=== PATIENT | male | born 1965 | race Two or more races ===

== ENCOUNTER 2021-06-27 06:34 | Outpatient (CLI) | payer OTHER | END 2021-06-27 06:36 | disposition home or self-care (01) | LOC: LAB 06:34 | PROVIDERS: ATTEND Internal Medicine | DX: D56.8 Other thalassemias (principal); D64.3 Other sideroblastic anemias; R94.5 Abnormal results of liver function studies; E78.2 Mixed hyperlipidemia; I10 Essential (primary) hypertension; N40.0 Benign prostatic hyperplasia without lower urinary tract symptoms; R73.01 Impaired fasting glucose; Z13.1 Encounter for screening for diabetes mellitus; Z12.11 Encounter for screening for malignant neoplasm of colon; E55.9 Vitamin D deficiency, unspecified; E79.0 Hyperuricemia without signs of inflammatory arthritis and tophaceous disease ==

== ENCOUNTER 2021-08-13 06:53 | Outpatient (CLI) | payer OTHER | END 2021-08-13 15:32 | disposition home or self-care (01) | LOC: LAB 06:53 | PROVIDERS: ATTEND Internal Medicine Endocrinology, Diabetes & Metabolism | DX: E03.8 Other specified hypothyroidism (principal) ==

== ENCOUNTER 2021-08-13 07:34 | Outpatient (CLI) | payer OTHER | END 2021-08-13 07:40 | disposition home or self-care (01) | LOC: SONOGRAMA 07:34 | PROVIDERS: ATTEND Internal Medicine Endocrinology, Diabetes & Metabolism | DX: E03.8 Other specified hypothyroidism (principal) ==

== ENCOUNTER 2022-07-13 07:42 | Outpatient (CLI) | payer OTHER | END 2022-07-13 07:48 | disposition home or self-care (01) | LOC: LAB 07:42 | PROVIDERS: ATTEND Internal Medicine | DX: E88.89 Other specified metabolic disorders (principal); D56.8 Other thalassemias; J32.4 Chronic pansinusitis; E11.65 Type 2 diabetes mellitus with hyperglycemia; E78.2 Mixed hyperlipidemia; E55.9 Vitamin D deficiency, unspecified; Z12.11 Encounter for screening for malignant neoplasm of colon ==

== ENCOUNTER 2022-09-07 09:38 | Outpatient (CLI) | payer OTHER | END 2022-09-07 09:42 | disposition home or self-care (01) | LOC: RAD 09:38 | DX: M99.01 Segmental and somatic dysfunction of cervical region (principal); M99.02 Segmental and somatic dysfunction of thoracic region; M99.03 Segmental and somatic dysfunction of lumbar region ==